=== PATIENT | female | born 1930 | race Caucasian/White ===

== ENCOUNTER 2017-04-23 11:37 | Emergency (ER) | payer MEDICARE, BC ==
[2017-04-23 12:48] LABS: BASOPHILS 0.3 % (0-2); EOSINOPHILS 1.2 % (0-7); HEMATOCRIT 35.4 % (36.0-48.0); HEMOGLOBIN 11.3 g/dL (12-16); MCH 27.8 pg (26.0-34.0); MCHC 31.9 g/dL (31.0-37.0); MEAN PLATELET VOLUME 8.6 fL (7.4-10.4); MONOCYTES 9.3 % (2-11); NEUTROPHILS 62.2 % (40-80); PLATELET COUNT 236 10x3/uL (130-400); RBC 4.07 10x6/uL (4.00-5.40); RDW 15.4 % (11.5-14.5); WBC 5.8 10x3/uL (4.8-10.8)
[2017-04-23 13:20] LABS: ALBUMIN 3.4 g/dL (3.4-5.0); ALKALINE PHOSPHATASE 104 U/L (46-116); ALT (SGPT) 99 U/L (10-68); BILIRUBIN - TOTAL 0.51 mg/dL (0.2-1.3); CALC OSMOLALITY 279 mosm/kg (275-300); CARBON DIOXIDE 27.3 mmol/L (21.0-32.0); CHLORIDE - SERUM 104 mmol/L (98-107); CKMB 1.9 U/L (0.0-3.6); CREATINE KINASE 185 UL (21-215); CREATININE - SERUM 0.6 mg/dL (0.6-1.3); GLUCOSE 89 mg/dL (74-106); POTASSIUM - SERUM 3.9 mmol/L (3.5-5.1); PROTEIN - SERUM 6.7 g/dL (6.4-8.2); SODIUM 139 mmol/L (136-145); UREA NITROGEN 20 mg/dL (7-18); eGFR NON AFRICAN AMERICAN > 90 mL/min (90-120)
[2017-04-23 13:21] LABS: CALCIUM 9.3 mg/dL (8.5-10.1); TROPONIN-I < 0.017 ng/mL (0.000-0.060)
[2017-04-23 13:38] LABS: APPEARANCE CLEAR (CLEAR); BACTERIA FEW /hpf (NONE SEEN); BILIRUBIN NEGATIVE (NEGATIVE); COLOR YELLOW (YELLOW); EPITHELIAL CELLS OCC /hpf (0-5); GLUCOSE NEGATIVE (NEGATIVE); KETONE NEGATIVE (NEGATIVE); NITRITE NEGATIVE (NEGATIVE); PROTEIN NEGATIVE (NEGATIVE); RED CELLS - URINE 0-5 /hpf (0-5); UROBILINOGEN NORMAL (NORMAL)
[2017-04-23 13:39] LABS: MUCUS <1+ /lpf (NONE SEEN); WHITE CELLS - URINE 0-5 /hpf (0-5)
== END 2017-04-23 15:02 | disposition home or self-care (01) ==
LOC: D.ER 11:37
PROVIDERS: Family Medicine
DX: S06.0X0A Concussion without loss of consciousness, initial encounter (principal); W19.XXXA Unspecified fall, initial encounter; Y93.89 Activity, other specified; Y92.029 Unspecified place in mobile home as the place of occurrence of the external cause; I10 Essential (primary) hypertension; R00.1 Bradycardia, unspecified

== ENCOUNTER → 2018-04-07 17:25 | Outpatient (CLI) | payer MEDICARE, BC | END | disposition home or self-care (01) | LOC: D.LABREF 17:25 | DX: N39.0 Urinary tract infection, site not specified (principal) ==

== ENCOUNTER → 2018-04-15 10:30 | Outpatient (CLI) | payer MEDICARE, BC | END | disposition home or self-care (01) | LOC: D.CT 10:30 | DX: R31.21 Asymptomatic microscopic hematuria (principal) ==

== ENCOUNTER 2018-08-17 06:30 | Day surgery (SDC) | payer MEDICARE, BC ==
[~2018-08-17] VITALS: Ht 149.9 cm; Wt 55.3 kg
[~2018-08-17 06:30] MED LIST: ANTIVERT12.5 MG PO; BAYER CHEWABLE81 MG PO; LEVOXYL25 MCG PO; NITROQUICK0.4 MG SL; TOPROL XL25 MG PO
[2018-08-17 07:26] LABS: BASOPHILS 0.5 % (0-2); EOSINOPHILS 3.3 % (0-7); HEMATOCRIT 36.7 % (36.0-48.0); HEMOGLOBIN 11.7 g/dL (12-16); IMMATURE GRANULOCYTES 0.2 % (0-5); LYMPHOCYTES 29.4 % (15-50); MCH 28.2 pg (26.0-34.0); MCHC 31.9 g/dL (31.0-37.0); MCV 88.4 fL (80.0-100.0); MONOCYTES 10.1 % (2-11); NEUTROPHILS 56.5 % (40-80); PLATELET COUNT 250 10x3/uL (130-400); RBC 4.15 10x6/uL (4.00-5.40); RDW 14.2 % (11.5-14.5); WBC 6.1 10x3/uL (4.8-10.8)
[2018-08-17 07:32] LABS: ANION GAP 10.5 mmol/L (8-16); CALCIUM 9.1 mg/dL (8.5-10.1); CARBON DIOXIDE 30.8 mmol/L (21.0-32.0); CREATININE - SERUM 0.8 mg/dL (0.6-1.3); POTASSIUM - SERUM 4.3 mmol/L (3.5-5.1)
[2018-08-17] MEDS ORDERED: TOPROL XL25 MG PO (08:07)
[2018-08-17 08:29] LABS: APPEARANCE CLEAR (CLEAR); COLOR YELLOW (YELLOW)
[2018-08-17 08:30] LABS: BACTERIA FEW /hpf (NONE SEEN); BILIRUBIN NEGATIVE (NEGATIVE); EPITHELIAL CELLS 0-5 /hpf (0-5); GLUCOSE NEGATIVE (NEGATIVE); KETONE NEGATIVE (NEGATIVE); MUCUS <1+ /lpf (NONE SEEN); NITRITE NEGATIVE (NEGATIVE); PROTEIN NEGATIVE (NEGATIVE); RED CELLS - URINE 0-5 /hpf (0-5); UROBILINOGEN NORMAL (NORMAL); WHITE CELLS - URINE 0-5 /hpf (0-5)
[2018-08-17 08:55] VITALS: BP 149/56; Ht 149.9 cm; Wt 55.3 kg
--- NOTE | 2018-08-17 14:53 | OP ---
PATIENT NAME: RUDDY ELDER MEDICAL RECORD: [id number] :30 LOCATION:[facility] ADMISSION DATE: SURGEON: BK VAN MD DATE OF OPERATION: 08/17/2018 SURGEON: Bk Van MD ANESTHESIA: TIVA by Dae Anderson MD DIAGNOSIS: Urge urinary incontinence. PROCEDURES: Cystoscopy and intravesical Botox injection 50 units. FINDINGS: Severe vaginal stenosis. No bladder tumors seen on cystoscopy. Single ureteral orifices bilaterally. There were glomerulations seen on the bladder wall. BLOOD LOSS: None. CLINICAL HISTORY: This is an 88-year-old female with urinary frequency and urgency and nocturia. She has not responded to oral medications. She comes today to have intravesical Botox injected for the first time. She is rather afraid of going into urinary retention and therefore she requested that only 50 units be given to her in the bladder today. We had the 100 unit vial come up from the pharmacy. We had to discard 50 units. The patient was given Ancef three dimensional map modeler to the OR. DESCRIPTION OF PROCEDURE: The patient was given IV sedation. She was placed in lithotomy position and prepped and draped. We used a 21-Ind[place]ian cystoscope. Findings are as outlined above. The Botox was reconstituted in 3 mL of preservative-free injectable normal saline. We then withdrew 1.5 mL of the solution, which contained 50 units and dilated this with further normal saline to a total volume of about 10 mL. Then, at each of 10 different locations, we injected 1 mL of the diluted solution. Thus each area has 5 units per mL. We spared the ureteral orifices and the trigone. The bladder was then emptied through the cystoscope sheath and the sheath was removed. The patient will be seen in followup in 2 weeks' time. TRANSINT:[id number] Voice Confirmation ID: [id number] DOCUMENT ID: [id number] BK VAN MD at 1453 CC: [id number] DICTATION DATE: 08/17/18 1225 DRILL RIG OPERATOR: 08/17/18 1259 [facility] 08/17/18 [place] [id number]
== END 2018-08-17 13:19 | disposition home or self-care (01) ==
LOC: D.OPS 06:30 → D.PAN 09:30 → D.OPS 10:40 → D.PAN 10:40 → D.OPS 12:00 → D.PAN 12:00 → D.OPS 13:19
PROVIDERS: Anesthesiology; ATTEND Urology
DX: N39.41 Urge incontinence (principal); R35.0 Frequency of micturition; R35.1 Nocturia; Z01.812 Encounter for preprocedural laboratory examination

== ENCOUNTER → 2018-09-16 16:54 | Outpatient (CLI) | payer MEDICARE, BC ==
[2018-08-17 08:55] VITALS: BMI 24.7
== END | disposition home or self-care (01) ==
LOC: D.MAMMO 16:00
PROVIDERS: ATTEND Family Medicine
DX: Z12.31 Encounter for screening mammogram for malignant neoplasm of breast (principal)

== ENCOUNTER 2018-12-12 11:25 | Emergency (ER) | payer MEDICARE, BC ==
[~2018-12-12] VITALS: Ht 149.9 cm; Wt 50.0 kg
[2018-12-12 11:30] VITALS: Ht 149.9 cm; Wt 50.0 kg
[2018-12-12 12:00] LABS: BASOPHILS 0.3 % (0-2); EOSINOPHILS 1.9 % (0-7); HEMATOCRIT 33.9 % (36.0-48.0); HEMOGLOBIN 11.3 g/dL (12-16); IMMATURE GRANULOCYTES 0.2 % (0-5); LYMPHOCYTES 27.8 % (15-50); MCH 29.6 pg (26.0-34.0); MCHC 33.3 g/dL (31.0-37.0); MCV 88.7 fL (80.0-100.0); MEAN PLATELET VOLUME 8.9 fL (7.4-10.4); MONOCYTES 8.5 % (2-11); NEUTROPHILS 61.3 % (40-80); PLATELET COUNT 219 10x3/uL (130-400); RBC 3.82 10x6/uL (4.00-5.40); RDW 14.6 % (11.5-14.5); WBC 6.3 10x3/uL (4.8-10.8)
[2018-12-12 12:18] LABS: ALBUMIN 3.7 g/dL (3.4-5.0); ANION GAP 12.1 mmol/L (8-16); BILIRUBIN - TOTAL 0.38 mg/dL (0.2-1.3); CALCIUM 9.4 mg/dL (8.5-10.1); CARBON DIOXIDE 29.3 mmol/L (21.0-32.0); CREATININE - SERUM 0.8 mg/dL (0.6-1.3); POTASSIUM - SERUM 4.4 mmol/L (3.5-5.1); PROTEIN - SERUM 6.4 g/dL (6.4-8.2)
[2018-12-12 14:40] VITALS: BP 157/69
== END 2018-12-12 14:40 | disposition home or self-care (01) ==
LOC: D.ER 11:25
PROVIDERS: Emergency Medicine
DX: M25.512 Pain in left shoulder (principal); W18.30XA Fall on same level, unspecified, initial encounter; Y93.89 Activity, other specified; Y92.22 Religious institution as the place of occurrence of the external cause

== ENCOUNTER 2018-12-15 11:32 | Emergency (ER) | payer MEDICARE, BC ==
[~2018-12-15] VITALS: Ht 149.9 cm; Wt 53.6 kg
[2018-12-15 11:34] VITALS: Ht 149.9 cm; Wt 53.6 kg
[2018-12-15 12:10] LABS: BASOPHILS 0.4 % (0-2); EOSINOPHILS 1.2 % (0-7); HEMATOCRIT 33.3 % (36.0-48.0); HEMOGLOBIN 10.9 g/dL (12-16); IMMATURE GRANULOCYTES 0.2 % (0-5); LYMPHOCYTES 23.7 % (15-50); MCH 29.4 pg (26.0-34.0); MCHC 32.7 g/dL (31.0-37.0); MCV 89.8 fL (80.0-100.0); MEAN PLATELET VOLUME 8.9 fL (7.4-10.4); NEUTROPHILS 64.5 % (40-80); PLATELET COUNT 198 10x3/uL (130-400); RBC 3.71 10x6/uL (4.00-5.40); RDW 14.3 % (11.5-14.5); WBC 5.7 10x3/uL (4.8-10.8)
[2018-12-15 12:20] LABS: APTT 28.2 SECONDS (22.8-39.4); INR 1.1 (0.85-1.17); PROTIME 13.7 SECONDS (11.6-15.0)
[2018-12-15 12:22] LABS: ALBUMIN 3.3 g/dL (3.4-5.0); ALKALINE PHOSPHATASE 81 U/L (46-116); ALT (SGPT) 36 U/L (10-68); BILIRUBIN - TOTAL 0.52 mg/dL (0.2-1.3); CALC OSMOLALITY 281 mosm/kg (275-300); CALCIUM 8.6 mg/dL (8.5-10.1); CARBON DIOXIDE 30.5 mmol/L (21.0-32.0); CHLORIDE - SERUM 104 mmol/L (98-107); CREATININE - SERUM 0.8 mg/dL (0.6-1.3); GLUCOSE 103 mg/dL (74-106); POTASSIUM - SERUM 3.9 mmol/L (3.5-5.1); PROTEIN - SERUM 6.5 g/dL (6.4-8.2); SODIUM 139 mmol/L (136-145); UREA NITROGEN 23 mg/dL (7-18); eGFR NON AFRICAN AMERICAN 72 mL/min (90-120)
[2018-12-15 12:34] LABS: CKMB 0.9 U/L (0.0-3.6); CREATINE KINASE 92 UL (21-215)
[2018-12-15 12:38] LABS: TROPONIN-I < 0.017 ng/mL (0.000-0.060)
[2018-12-15 14:55] VITALS: BP 140/60
== END 2018-12-15 14:51 | disposition home or self-care (01) ==
LOC: D.ER 11:32
PROVIDERS: Family Medicine
DX: R07.9 Chest pain, unspecified (principal); T50.995A Adverse effect of other drugs, medicaments and biological substances, initial encounter; Y92.019 Unspecified place in single-family (private) house as the place of occurrence of the external cause